=== PATIENT | male | born 1945 | race Native Hawaiian/Other Pacific Islander ===

== ENCOUNTER 2016-08-02 08:30 | Outpatient (CLI) | payer OTHER ==
[2016-08-02 09:05] LABS: POTASSIUM 4.1 mmol/L (3.6-5.2)
[2016-08-02 09:16] LABS: PLATELET COUNT 199 K/uL (142-355)
== END 2016-08-02 19:44 | disposition home or self-care (01) ==
LOC: LABW 08:30
PROVIDERS: Internal Medicine Cardiovascular Disease
DX: E78.4 Other hyperlipidemia (principal)
CPT/HCPCS: 36415; 80053; 80061; 82248; 85027

== ENCOUNTER 2019-04-15 14:02 | Observation (INO) | payer OTHER ==
[~2019-04-15] VITALS: Ht 185.4 cm; Wt 101.7 kg
[2019-04-15 14:24] VITALS: BP 118/68; TEMP 98.1
[2019-04-15 14:49] LABS: POTASSIUM 3.6 mmol/L (3.6-5.2)
[2019-04-15 14:50] LABS: PLATELET COUNT 183 K/uL (142-355)
[2019-04-15 16:30] VITALS: BP 120/70
[2019-04-15 20:23] VITALS: BP 169/90; TEMP 98; Ht 185.4 cm; Wt 101.7 kg
[2019-04-15 23:59] VITALS: BP 136/67; TEMP 99.9
[2019-04-16 04:00] VITALS: BP 129/82; TEMP 99.4
[2019-04-16 05:30] LABS: PLATELET COUNT 138 K/uL (142-355)
[2019-04-16 05:46] LABS: POTASSIUM 3.8 mmol/L (3.6-5.2)
[2019-04-16 08:00] VITALS: BP 133/71; TEMP 97.4
[2019-04-16 12:00] VITALS: BP 138/78; TEMP 98.3
[2019-04-16 16:00] VITALS: BP 161/84; TEMP 98.2
[2019-04-16 20:00] VITALS: BP 142/79; TEMP 98.6
[2019-04-17] VITALS: BP 172/84; TEMP 99.6
[2019-04-17 04:00] VITALS: BP 146/80; TEMP 99.4
[2019-04-17 08:00] VITALS: BP 152/77; TEMP 97.9
[2019-04-17 11:27] LABS: PLATELET COUNT 137 K/uL (142-355)
[2019-04-17 11:36] LABS: POTASSIUM 3.5 mmol/L (3.6-5.2)
[2019-04-17 12:00] VITALS: BP 167/87; TEMP 98.1
[2019-04-17] MEDS ORDERED: LIPITOR40 MG PO (12:25)
[2019-04-17] MEDS ORDERED: EUTHYROX175 MCG PO (12:26)
[2019-04-17] MEDS ORDERED: VITAMIN D50000 UNIT PO (12:27)
[2019-04-17] MEDS ORDERED: TRAMADOL HYDROC50 MG PO (12:28)
[2019-04-17] MEDS ORDERED: LORA1TAB17 PO (12:28)
[2019-04-17] MEDS ORDERED: NEURONTIN 100M100 MG PO (12:29)
[2019-04-17] MEDS ORDERED: GLIP10TA55 PO (12:31)
[2019-04-17] MEDS ORDERED: LISI5TAB10 PO (12:37)
[2019-04-17] MEDS ORDERED: CIPR500T PO (12:49)
[2019-04-17] MEDS ORDERED: METR250T19 PO (12:49)
== END 2019-04-17 13:30 | disposition home or self-care (01) ==
LOC: ED 14:02 → MED/SURG 18:04
PROVIDERS: Emergency Medicine; ADMIT Internal Medicine
DX: K57.32 Diverticulitis of large intestine without perforation or abscess without bleeding (principal); I71.4 Abdominal aortic aneurysm, without rupture; D72.828 Other elevated white blood cell count; I25.10 Atherosclerotic heart disease of native coronary artery without angina pectoris; E11.9 Type 2 diabetes mellitus without complications; E03.8 Other specified hypothyroidism; I25.2 Old myocardial infarction; Z95.1 Presence of aortocoronary bypass graft; I10 Essential (primary) hypertension
CPT/HCPCS: 80053; 82948; 85027; 93005; 96360; 96361; 96365; 96366; 96367; 96375; 99220; 99284; G0378; J0744; J1650; J2543; J3490; Q9963

== ENCOUNTER 2019-06-15 09:46 | Outpatient (CLI) | payer OTHER ==
[~2019-06-15 09:46] MED LIST: CIPR500T PO; EUTHYROX175 MCG PO; GLIP10TA55 PO; LIPITOR40 MG PO; LISI5TAB10 PO; LORA1TAB17 PO; METR250T19 PO; NEURONTIN 100M100 MG PO; TRAMADOL HYDROC50 MG PO; VITAMIN D50000 UNIT PO
[2019-06-15 10:07] LABS: PLATELET COUNT 167 K/uL (142-355)
[2019-06-15 10:13] LABS: POTASSIUM 4.6 mmol/L (3.6-5.2)
== END 2019-06-15 19:15 | disposition home or self-care (01) ==
LOC: LABW 09:46
PROVIDERS: Nurse Practitioner
DX: I10 Essential (primary) hypertension (principal); E78.49 Other hyperlipidemia; R30.0 Dysuria; E11.9 Type 2 diabetes mellitus without complications
CPT/HCPCS: 36415; 80053; 81000; 83036; 85027